=== PATIENT | female | born 1985 | race African-American/Black ===

== ENCOUNTER → 2024-06-29 | Outpatient (REF) | payer OTHER | LOC: M LAB REF 09:04 | PROVIDERS: ATTEND Physician Assistant | DX: B34.9 Viral infection, unspecified (principal) ==

== ENCOUNTER 2024-11-05 08:07 | Emergency (ER) | payer OTHER ==
[~2024-11-05] VITALS: Ht 170.2 cm; Wt 57.9 kg
[2024-11-05] MEDS: KETOROLAC 30 MG/ML 1ML VIAL IM ONE (10:04)
[2024-11-05] MEDS: methocarbamoL 750 MG TAB PO ONE (10:04)
[2024-11-05] MEDS: ACETAMINOPHEN 325 MG TAB PO ONE (10:06)
[2024-11-05 10:23] VITALS: BP 151/95; TEMP 97.8; O2SAT 100
[2024-11-05] MEDS ORDERED: METH-1165 PO (10:42)
[2024-11-05] MEDS ORDERED: MEDR4PAK PO (10:42)
== END 2024-11-05 10:59 | disposition home or self-care (01) ==
LOC: M ED 08:07
DX: M54.42 Lumbago with sciatica, left side (principal); M51.371 Other intervertebral disc degeneration, lumbosacral region with lower extremity pain only; Z79.899 Other long term (current) drug therapy
CPT/HCPCS: 72110; 96372; 99283; J1885

== ENCOUNTER → 2024-12-05 | Outpatient (REF) | payer OTHER ==
[~2024-12-05] MED LIST: MEDR4PAK PO; METH-1165 PO
[2024-12-05 17:32] LABS: ALBUMIN 4.3 G/DL (3.2-5.2); ALKALINE PHOSPHATASE 67 U/L (35-104); ALT/SGPT 21 U/L (7.0-40); AST/SGOT 22 U/L (<34); BILIRUBIN,TOTAL 0.5 MG/DL (0.3-1.2); BLOOD UREA NITROGEN 16 MG/DL (9-23); CARBON DIOXIDE LEVEL 28 MMOL/L (20-31); CHLORIDE LEVEL 104 MMOL/L (98-107); CREATININE FOR GFR 1.03 MG/DL (0.55-1.30); GLOMERULAR FILTRATION RATE > 60.0 (>60); GLUCOSE, FASTING 77 MG/DL (60-100); SODIUM LEVEL 142 MMOL/L (136-145); TOTAL PROTEIN 8.2 G/DL (5.7-8.2)
[2024-12-05 17:34] LABS: THYROID STIMULATING HORMONE 1.598 uIU/ML (0.55-4.78); TOTAL 25(OH) VITAMIN D 14.3 NG/ML (20.0-100.0)
[2024-12-05 17:38] LABS: HEMOGLOBIN A1c 5.5 % (4.0-6.0)
[2024-12-05 18:05] LABS: HIV 1&2 SCREEN NEGATIVE (NEGATIVE)
[2024-12-05 18:13] LABS: HEPATITIS C VIRUS ABY INDEX < 0.02 INDEX (<0.8)
== END ==
LOC: M LAB REF 16:40
PROVIDERS: ATTEND Physician Assistant
DX: Z11.9 Encounter for screening for infectious and parasitic diseases, unspecified (principal); E55.9 Vitamin D deficiency, unspecified; G43.009 Migraine without aura, not intractable, without status migrainosus; F43.81 Prolonged grief disorder

== ENCOUNTER → 2024-12-19 | Outpatient (CLI) | payer OTHER | LOC: M PLAIMG 13:29 | PROVIDERS: ATTEND Physician Assistant | DX: M51.26 Other intervertebral disc displacement, lumbar region (principal); M51.27 Other intervertebral disc displacement, lumbosacral region ==